=== PATIENT | male | born 1955 | race Caucasian/White ===

== ENCOUNTER 2020-08-26 19:08 | Observation (INO) | payer MEDICARE ==
[~2020-08-26] VITALS: Ht 175.3 cm; Wt 93.8 kg
[~2020-08-26 19:08] MED LIST: ELIQUIS 5 MG TAB5 MG PO; FLOMAX 0.4 MG0.4 MG PO; HUMULIN 70100 UNIT/1 SC; HYDROCODON-ACE1 EAC2 PO; LANTUS100 UNIT/1 SQ; LEVOTHYROXINE50 MCG PO; LISINOPRIL2.5 MG PO; LYRICA150 MG PO
[2020-08-26] MEDS ORDERED: ASPIRIN EC81 MG PO (20:45)
[2020-08-26 21:12] LABS: HEMOGLOBIN 13.3 gm/dl (14.0-17.5); RED BLOOD COUNT 4.11 M/UL (4.20-5.50); WHITE BLOOD COUNT 9.2 K/UL (4.5-11.0)
[2020-08-26 21:36] LABS: BUN/CREATININE RATIO 21 (0-10)
[2020-08-27 05:21] LABS: RED BLOOD COUNT 4.02 M/UL (4.20-5.50); WHITE BLOOD COUNT 8.5 K/UL (4.5-11.0)
[2020-08-27 05:45] LABS: BUN/CREATININE RATIO 22 (0-10)
--- NOTE | 2020-08-27 18:24 | NUR ---
REPORT CALLED TO GABY TREVINO AT [address] [facility] NOTIFIED OF NEED OF ALS TRANSPORT. PT AND DAUGHTER IN ROOM NOTIFIED PT WILL BE TRANSFERED AND ROOM NUMBER WITH VOICED UNDERSTANDING.
== END 2020-08-27 21:30 | disposition short-term general hospital (02) ==
LOC: PROG CARE 19:08
PROVIDERS: ADMIT Internal Medicine
DX: I21.4 Non-ST elevation (NSTEMI) myocardial infarction (principal); I25.110 Atherosclerotic heart disease of native coronary artery with unstable angina pectoris; E03.9 Hypothyroidism, unspecified; E78.5 Hyperlipidemia, unspecified; I48.0 Paroxysmal atrial fibrillation; Z79.01 Long term (current) use of anticoagulants; G47.33 Obstructive sleep apnea (adult) (pediatric); E05.90 Thyrotoxicosis, unspecified without thyrotoxic crisis or storm; E11.22 Type 2 diabetes mellitus with diabetic chronic kidney disease; N18.9 Chronic kidney disease, unspecified; N40.0 Benign prostatic hyperplasia without lower urinary tract symptoms; G89.29 Other chronic pain; D63.1 Anemia in chronic kidney disease; K75.81 Nonalcoholic steatohepatitis (NASH); N17.9 Acute kidney failure, unspecified; Z79.82 Long term (current) use of aspirin; Z79.4 Long term (current) use of insulin; I07.1 Rheumatic tricuspid insufficiency
CPT/HCPCS: ECHO; 36415; 76700; 80048; 80053; 80061; 82550; 82553; 82962; 83036; 83735; 84443; 84484; 85025; 85027; 85610; 85730; 93005; 93306; 96374; 96376; C1769; G0378; G0379; J1644; J2250; J3010; Q9967